=== PATIENT | female | born 1975 | race Caucasian/White ===

== ENCOUNTER → 2017-03-11 | Outpatient (CLI) | payer OTHER ==
[~2017-03-11] MED LIST: AMITRIPTYLINE H75 MG PO; BREO ELLIPTA1 POW IH; BYSTOLIC10 MG PO; CEFDINIR300 M1 PO; CLARITIN10 MG OR; FLONASE 50 MCG16 GM; INDERAL10 MG PO; LISINOPRIL/HCTZ1 TA3 PO; MELATONIN1 MG PO; MELATONIN5 MG PO; PANTOPRAZOLE SO40 M1 PO; QVAR8.7 GM IH; VENLAFAXINE HY150 MG PO; VENTOLIN H0.09 MG/Ac IH
[2017-03-11 14:25] VITALS: BP 112/81
[2017-03-11 14:35] VITALS: BP 120/83
--- NOTE | 2017-03-12 11:00 | RADIOLOGY REPORT PS360 ---
CT CHEST W/O CONTRAST HISTORY: RECURRENT PNEUMONIA ORDERING PHYSICIAN: KORIN PALAFOX MD PATIENT AGE: 42 years TECHNIQUE: Axial images are obtained without contrast. Sagittal and coronal reformatted images also generated and reviewed. COMPARISON: 06/25/2015. FINDINGS: Calcified nodes are present in the precarinal, subcarinal, and right hilar region. There is a normal heart size. No pericardial effusion. Upper abdominal images demonstrate 17 mm splenic artery aneurysm with concentric calcification. There are stable calcified and noncalcified nodules as previously described. Patchy area of infiltrate is present in the right upper lobe laterally, right middle lobe laterally, and right middle lobe medially. There is a stable 3 mm nodule in the superior segment of the right lower lobe. Previously noted opacification in the right perihilar region is no longer apparent. 3 mm nodule left upper lobe centrally unchanged. No suspicious nodules. No central bronchial obstructing lesion is evident. No bronchiectasis or effusions. Upper abdominal images show splenic artery aneurysm. There are some small lymph nodes in the retroperitoneum on the left. No acute bony anomalies. IMPRESSION: 1. Subsegmental areas of infiltrate/atelectasis in the right upper lobe and right middle lobe 2. Previously noted opacity in the right perihilar region has resolved. 3. Stable bilateral small pulmonary nodules
== END ==
LOC: RAD 12:40 → RT 14:00
DX: J45.909 Unspecified asthma, uncomplicated (principal); J18.9 Pneumonia, unspecified organism